=== PATIENT | female | born 1970 | race Caucasian/White ===

== ENCOUNTER → 2020-03-12 | Outpatient (CLI) | payer OTHER ==
--- NOTE | 2020-03-12 16:06 | RAD ---
Exam: Cervical spine 4 views INDICATION: Neck pain TECHNIQUE: Frontal, lateral, odontoid and fuch views of the cervical spine Comparisons: None FINDINGS: There is straightening of cervical spine which may be positional. Vertebral body heights are well-maintained. Mild spondylotic change in cervical spine with degenerative disc disease greatest at C4-C5. Visualized paraspinal soft tissues are unremarkable. There is fixation screws at the angles of the mandible bilaterally. IMPRESSION: 1. Straightening of cervical spine, may be positional versus related to muscle spasm. 2. Mild spondylotic change in cervical spine as described above. Electronically signed by: Peyton Dorsey MD (03/12/2020 4:03 PM) [id number]
== END | disposition home or self-care (01) ==
LOC: DXRAD 15:38
PROVIDERS: ATTEND Physician Assistant
DX: M50.121 Cervical disc disorder at C4-C5 level with radiculopathy (principal); M47.22 Other spondylosis with radiculopathy, cervical region; M75.02 Adhesive capsulitis of left shoulder
CPT/HCPCS: 72040